=== PATIENT | female | born 1975 | race Caucasian/White ===

== ENCOUNTER 2018-01-23 09:32 | Emergency (ER) | payer MEDICAID ==
[~2018-01-23] VITALS: Ht 160 cm; Wt 83.2 kg
[2018-01-23 09:37] VITALS: BP 161/59; Ht 160 cm; Wt 83.2 kg
== END 2018-01-23 11:11 | disposition home or self-care (01) ==
LOC: ED 09:32
DX: N39.0 Urinary tract infection, site not specified (principal); I10 Essential (primary) hypertension

== ENCOUNTER 2018-03-25 18:10 | Emergency (ER) | payer MEDICAID ==
[~2018-03-25] VITALS: Ht 160 cm; Wt 83.5 kg
[2018-03-25 18:18] VITALS: Ht 160 cm; Wt 83.5 kg
[2018-03-25 20:52] VITALS: BP 124/70
== END 2018-03-25 21:20 | disposition home or self-care (01) ==
LOC: ED 18:10
DX: N39.0 Urinary tract infection, site not specified (principal); I10 Essential (primary) hypertension
CPT/HCPCS: 82962

== ENCOUNTER 2018-04-20 09:26 | Emergency (ER) | payer MEDICAID ==
[~2018-04-20] VITALS: Ht 157.5 cm; Wt 83.0 kg
[2018-04-20 09:31] VITALS: BP 147/88; Ht 157.5 cm; Wt 83.0 kg
[2018-04-20 10:27] LABS: microscopic required? NO
[2018-04-20 10:41] LABS: urine erythrocyte NEGATIVE (NEGATIVE)
== END 2018-04-20 11:16 | disposition home or self-care (01) ==
LOC: ED 09:26
PROVIDERS: Emergency Medicine
DX: N39.0 Urinary tract infection, site not specified (principal); I10 Essential (primary) hypertension